=== PATIENT | male | born 1985 | race Two or more races ===

== ENCOUNTER 2020-11-01 10:43 | Outpatient (REF) | payer OTHER, SELFPAY | END 2020-11-01 10:44 | disposition home or self-care (01) | LOC: HO.LAB 10:43 | PROVIDERS: Visit Provider Internal Medicine | DX: Z20.822 Contact with and (suspected) exposure to COVID-19 (principal) | CPT/HCPCS: 36415; C9803; U0003 ==

== ENCOUNTER 2020-12-14 12:00 | Outpatient (REF) | payer OTHER, SELFPAY ==
[2020-12-14 12:30] LABS: MANUAL DIFF FLAG NO
[2020-12-14 12:35] LABS: Basophils Percent Auto 0.5 % (0-2); Eosinophils Absolute Auto 0.2 X10*3/uL (0.0-0.4); Hematocrit 46.9 % (42-52); Imm Gran Abs Auto 0.02 X10*3/uL (0.00-0.03); Imm Gran Pct Auto 0.2 % (0.0-0.4); Lymphocytes Absolute Auto 2.3 X10*3/uL (1.2-4.9); Lymphocytes Percent Auto 29.2 % (20-40); Mean Corpuscular HGB Conc 34.1 g/dl (31.0-36.0); Mean Corpuscular Hemoglobin 29.7 pg (27.0-33.0); Mean Platelet Volume 12.7 fL (9.4-12.4); Monocytes Absolute Auto 0.5 X10*3/uL (0.1-1.2); Monocytes Percent Auto 6.5 % (2-11); Neutrophils Absolute Auto 4.9 X10*3/uL (2.0-8.3); Neutrophils Percent Auto 61.6 % (45-73); Platelet Count 219 X10*3/uL (160-400); Red Blood Count 5.39 X10*6/uL (4.60-5.80); Red Cell Distribution Width 13.2 % (11.0-16.0)
[2020-12-14 13:10] LABS: Alanine Aminotransferase 50 U/L (0-40); Albumin Level 4.4 g/dL (3.5-5.0); Alkaline Phosphatase 79 U/L (39-117); Anion Gap 10 (12-20); Aspartate Amino Transferase 26 U/L (5-37); Bilirubin Total 0.5 mg/dL (0.0-1.0); Blood Urea Nitrogen 8 mg/dL (9-16); Calcium 9.4 mg/dL (8.4-10.2); Carbon Dioxide 31 mmol/L (22-29); Chloride 105 mmol/L (96-108); Cholesterol 170 mg/dL; Estimated Glomerular Filt Rate > 60; Glucose Random 90 mg/dL (60-115); HDL Cholesterol 32 mg/dL; LDL Cholesterol Calculated 112 mg/dl; Potassium 4.4 mmol/L (3.3-5.1); Sodium 142 mmol/L (135-145); Total Protein 6.7 g/dL (6.5-8.0); Triglycerides 132 mg/dL
== END 2020-12-14 12:01 | disposition home or self-care (01) ==
LOC: HO.LAB 12:00
PROVIDERS: PCP Internal Medicine; Visit Provider Internal Medicine
DX: Z00.00 Encounter for general adult medical examination without abnormal findings (principal); E78.1 Pure hyperglyceridemia; F33.42 Major depressive disorder, recurrent, in full remission; R74.01 Elevation of levels of liver transaminase levels; F17.211 Nicotine dependence, cigarettes, in remission
CPT/HCPCS: 36415; 80053; 80061; 85025

== ENCOUNTER 2021-02-05 09:45 | Outpatient (REF) | payer OTHER, SELFPAY ==
[2021-02-05 10:24] LABS: COVID-19 Test Negative (Negative)
== END 2021-02-05 09:46 | disposition home or self-care (01) ==
LOC: HO.LAB 09:45
PROVIDERS: Visit Provider Internal Medicine
DX: Z20.822 Contact with and (suspected) exposure to COVID-19 (principal)
CPT/HCPCS: 36415; 87635; C9803

== ENCOUNTER 2021-06-25 10:54 | Outpatient (REF) | payer OTHER, SELFPAY | END 2021-06-25 10:55 | disposition home or self-care (01) | LOC: HO.LAB 10:54 | PROVIDERS: PCP Internal Medicine; Visit Provider Internal Medicine | DX: Z20.822 Contact with and (suspected) exposure to COVID-19 (principal) | CPT/HCPCS: C9803; U0003; U0005 ==

== ENCOUNTER 2021-12-13 15:25 | Outpatient (REF) | payer OTHER, SELFPAY ==
[2021-12-13 15:48] LABS: Hematocrit 47.6 % (42.0-52.0); Hemoglobin 16.1 g/dl (14.0-18.0); Mean Corpuscular HGB Conc 33.8 g/dl (31.0-36.0); Mean Corpuscular Hemoglobin 29.9 pg (27.0-33.0); Mean Corpuscular Volume 88.3 fL (80.0-98.0); Mean Platelet Volume 12.4 fL (9.4-12.4); Platelet Count 226 X10*3/uL (160-400); Red Blood Count 5.39 X10*6/uL (4.60-5.80)
[2021-12-13 15:53] LABS: WBC ABN SCTR FOR CBC 1
[2021-12-13 16:10] LABS: White Blood Count 8.5 X10*3/uL (4.8-10.8)
[2021-12-13 16:18] LABS: Atypical Lymph Absolute Manual 0.1 x10*3/uL; Atypical Lymphs Percent Manual 1 % (0-6); Basophils Abs Manual 0.1 X10*3/uL (0.0-0.2); Basophils Percent Manual 1 % (0-2); Lymphocytes Absolute Manual 1.9 X10*3/uL (1.2-4.9); Lymphocytes Percent Manual 22 % (20-40); Monocytes Absolute Manual 0.6 X10*3/uL (0.1-1.2); Monocytes Percent Manual 7 % (2-11); Neutrophils Percent Manual 69 % (45-73)
[2021-12-13 16:19] LABS: Band Neutrophils Percent 0 % (3-5); Large Platelet PRESENT; Neutrophils Absolute Manual 5.9 X10*3/uL (2.0-8.3); Platelet Estimate NORMAL (NORMAL); Platelet Morphology Comment NOTED; RBC Morphology NORMAL
[2021-12-13 16:20] LABS: Acanthocytes 1+ (0-2) /OIF
[2021-12-13 16:44] LABS: Alanine Aminotransferase 37 U/L (0-40); Albumin Level 4.5 g/dL (3.5-5.0); Alkaline Phosphatase 85 U/L (39-117); Anion Gap 9 (12-20); Aspartate Amino Transferase 22 U/L (5-37); Bilirubin Total 0.9 mg/dL (0.0-1.0); Blood Urea Nitrogen 9 mg/dL (9-16); Calcium 9.9 mg/dL (8.4-10.2); Carbon Dioxide 31 mmol/L (22-29); Chloride 104 mmol/L (96-108); Cholesterol 192 mg/dL; Estimated Glomerular Filt Rate > 60; Glucose Random 82 mg/dL (60-115); HDL Cholesterol 32 mg/dL; LDL Cholesterol Calculated 124 mg/dl; Potassium 4.3 mmol/L (3.3-5.1); Sodium 140 mmol/L (135-145); Total Protein 6.9 g/dL (6.5-8.0); Triglycerides 181 mg/dL
[2021-12-13 17:04] LABS: Thyroid Stimulating Hormone 1.18 uIU/mL (0.32-4.0)
== END 2021-12-13 15:26 | disposition home or self-care (01) ==
LOC: HO.LAB 15:25
PROVIDERS: PCP Internal Medicine; Visit Provider Internal Medicine
DX: Z00.00 Encounter for general adult medical examination without abnormal findings (principal); E78.2 Mixed hyperlipidemia; R74.01 Elevation of levels of liver transaminase levels; F17.291 Nicotine dependence, other tobacco product, in remission
CPT/HCPCS: 36415; 80053; 80061; 84443; 85007; 85025; 85027

== ENCOUNTER 2022-05-30 13:34 | Outpatient (REF) | payer OTHER, SELFPAY ==
[2022-06-02 02:02] LABS: TS Negative Control Passed; TS Panel A 0; TS Panel B 0; TS Positive Control Passed; TSpotTB Negative (Negative)
== END 2022-05-30 13:35 | disposition home or self-care (01) ==
LOC: HO.LAB 13:34
PROVIDERS: PCP Internal Medicine; Visit Provider Internal Medicine
DX: Z11.1 Encounter for screening for respiratory tuberculosis (principal)
CPT/HCPCS: 36415; 86481

== ENCOUNTER 2023-10-02 12:19 | Outpatient (REF) | payer MEDICAID, SELFPAY | END 2023-10-02 12:20 | disposition home or self-care (01) | LOC: HO.XRAY 12:19 | PROVIDERS: PCP Internal Medicine; Visit Provider Internal Medicine | DX: Z13.89 Encounter for screening for other disorder (principal) | CPT/HCPCS: 73560 ==

== ENCOUNTER 2023-10-30 10:45 | Outpatient (REF) | payer MEDICAID, SELFPAY ==
[2023-10-30 13:22] LABS: MANUAL DIFF FLAG NO
[2023-10-30 13:34] LABS: Basophils Percent Auto 0.4 % (0-2); Eosinophils Absolute Auto 0.1 X10*3/uL (0.0-0.4); Eosinophils Percent Auto 1.6 % (0-4); Hematocrit 49.2 % (42.0-52.0); Hemoglobin 16.9 g/dl (14.0-18.0); Imm Gran Abs Auto 0.02 X10*3/uL (0.00-0.03); Imm Gran Pct Auto 0.3 % (0.0-0.4); Lymphocytes Absolute Auto 2.1 X10*3/uL (1.2-4.9); Lymphocytes Percent Auto 28.1 % (20-40); Mean Corpuscular HGB Conc 34.3 g/dl (31.0-36.0); Mean Corpuscular Hemoglobin 29.6 pg (27.0-33.0); Mean Corpuscular Volume 86.3 fL (80.0-98.0); Mean Platelet Volume 13.3 fL (9.4-12.4); Monocytes Absolute Auto 0.4 X10*3/uL (0.1-1.2); Monocytes Percent Auto 5.7 % (2-11); Neutrophils Absolute Auto 4.7 x10*3/uL (2.0-8.3); Neutrophils Percent Auto 63.9 % (45-73); Platelet Count 211 X10*3/uL (160-400); Red Cell Distribution Width 13.1 % (11.0-16.0); White Blood Count 7.3 X10*3/uL (4.8-10.8)
[2023-10-30 14:01] LABS: Alanine Aminotransferase 38 U/L (0-40); Albumin Level 4.3 g/dL (3.5-5.0); Alkaline Phosphatase 79 U/L (39-117); Anion Gap 10 (12-20); Aspartate Amino Transferase 23 U/L (5-37); Bilirubin Total 0.5 mg/dL (0.0-1.0); Blood Urea Nitrogen 12 mg/dL (9-16); Calcium 9.4 mg/dL (8.4-10.2); Carbon Dioxide 29 mmol/L (22-29); Chloride 107 mmol/L (96-108); Cholesterol 157 mg/dL (<200); Estimated Glomerular Filt Rate > 60; Glucose Random 92 mg/dL (60-115); HDL Cholesterol 32 mg/dL (>40); LDL Cholesterol Calculated 106 mg/dL (<100); Potassium 3.9 mmol/L (3.3-5.1); Sodium 142 mmol/L (135-145); Triglycerides 96 mg/dL (<150)
[2023-10-30 14:36] LABS: D Dimer High Sensitivity < 150 NG/ML
== END 2023-10-30 10:46 | disposition home or self-care (01) ==
LOC: HO.10HDL 10:45
PROVIDERS: Visit Provider Internal Medicine
DX: E78.1 Pure hyperglyceridemia (principal); I10 Essential (primary) hypertension; M79.604 Pain in right leg; R74.01 Elevation of levels of liver transaminase levels; Z87.19 Personal history of other diseases of the digestive system
CPT/HCPCS: 36415; 80053; 80061; 85025; 85379

== ENCOUNTER 2024-04-20 07:36 | Emergency (ER) | payer MEDICAID, SELFPAY ==
--- NOTE | ~2024-04-20 | XR_ITS ---
EXAMINATION: XR KNEE, LEFT CLINICAL INFORMATION: Left knee pain COMPARISON: None available. TECHNIQUE: Four views of the left knee. FINDINGS: Mild medial knee joint narrowing. No fracture, dislocation or joint effusion. XR/XR knee LT 3V IMPRESSION: Mild medial knee joint narrowing. No acute bony pathology.
[2024-04-20 07:38] VITALS: BP 121/89; PULSE 82; RESP 16; TEMP 37; O2SAT 96; BMI 31.0
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
[2024-04-20] MEDS: Ketorolac Tromethamine 30 MG/ML VIAL IM (10:37)
[2024-04-20 10:45] VITALS: BP 121/89; PULSE 82; RESP 16; TEMP 37; O2SAT 96
--- NOTE | 2024-04-20 10:45 | PC.NURSE ---
medicated per MAR, left knee wrapped
== END 2024-04-20 10:45 | disposition home or self-care (01) ==
PROVIDERS: Emergency Provider Emergency Medicine; PCP Internal Medicine
DX: S89.92XA Unspecified injury of left lower leg, initial encounter (principal); X58.XXXA Exposure to other specified factors, initial encounter; Y93.9 Activity, unspecified; Y92.9 Unspecified place or not applicable; Y99.9 Unspecified external cause status; M25.562 Pain in left knee
CPT/HCPCS: 73562; 96372; 99283; 99284; J1885

== ENCOUNTER 2024-05-12 10:12 | Outpatient (REF) | payer OTHER, SELFPAY ==
--- NOTE | ~2024-05-12 | XR_ITS ---
EXAMINATION: X-ray right knee X-ray left knee CLINICAL INFORMATION: Pain COMPARISON: X-ray 04/20/2024 TECHNIQUE: Right knee patellar sunrise one view. Left knee patellar sunrise one view FINDINGS: Right knee: Mild lateral patellar tilt and lateral patellofemoral joint space narrowing. No acute findings. Left knee: Mild lateral patellar tilt and lateral patella with joint space narrowing. No acute findings. XR/XR knee LT 1V IMPRESSION: As above Study is assigned for dictation on May 31, 2024
--- NOTE | ~2024-05-12 | XR_ITS ---
EXAMINATION: X-ray right knee X-ray left knee CLINICAL INFORMATION: Pain COMPARISON: X-ray 04/20/2024 TECHNIQUE: Right knee patellar sunrise one view. Left knee patellar sunrise one view FINDINGS: Right knee: Mild lateral patellar tilt and lateral patellofemoral joint space narrowing. No acute findings. Left knee: Mild lateral patellar tilt and lateral patella with joint space narrowing. No acute findings. XR/XR knee RT 1V IMPRESSION: As above Study is assigned for dictation on May 31, 2024
== END 2024-05-12 10:13 | disposition home or self-care (01) ==
LOC: HO.HOSX 10:12
PROVIDERS: PCP Internal Medicine; Visit Provider Physician Assistant
DX: M25.561 Pain in right knee (principal); M25.562 Pain in left knee; G89.29 Other chronic pain
CPT/HCPCS: 73560; 99212

== ENCOUNTER 2024-05-12 10:12 | Outpatient (AMB) | payer MEDICAID, SELFPAY ==
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
[2024-05-12 10:36] VITALS: BMI 31.0
== END 2024-05-12 11:12 | disposition home or self-care (01) ==
PROVIDERS: PCP Internal Medicine; Visit Provider Physician Assistant
DX: M25.561 Pain in right knee (principal); M25.562 Pain in left knee; G89.29 Other chronic pain
CPT/HCPCS: 99213

== ENCOUNTER 2024-07-02 09:00 | Outpatient (RCR) | payer OTHER, SELFPAY ==
--- NOTE | 2024-06-08 14:52 | MHC.PT.EP ---
[facility] [place] Office [place] Office [place] Office [address] Eduardo Foley [address] [phone] F: [phone] F: [phone] F: [phone] F: [phone] Physical Therapy Plan of Care Date of Evaluation: 06/08/24 Date of Surgery: Diagnosis: Chronic bilateral knee patellofemoral pain (MD Dx) (RS) Assessment: Patient is a pleasant 39 y.o. male who is referred to PT by Ector Monzon PA-C of [facility] with Dx of Chronic bilateral knee patellofemoral pain. He presents with reduced strength and endurance in bilateral knees and hips, causing muscle imbalances creating more strain to medial knees/patella. He also shows antalgic gait and poor mechanics with bend/squat. Patient current functional limitations are bend/lift at work, driving, prolonged stair use (flights), prolonged standing and walking. Patient will benefit from skilled PT to address aforementioned impairments and functional limitations to meet established goals. Frequency and Duration: The patient will be seen 1-2x/week for 4 weeks Short Term Goals: 2 weeks Patient demonstrates consistency and independence with HEP to self manage symptoms. 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 Patient presents with increased bilateral quad strength 5/5 to be able to bend/squat repeatedly without sxs. Treatment Plan: Modalities to reduce pain, spasms and effusion. Manual therapy to restore motion and function. Therapeutic exercise to improve strength and flexibility. Neuromuscular re-education for posture and balance. Therapeutic activities to return to functional activities of daily living. Electronically signed by: Jake Dong, PT, DPT Please sign and return to therapist. Thank you for your referral.
--- NOTE | 2024-08-18 15:47 | MHC.PT.DC ---
[facility] [place] Office [place] Office [place] Office [address] Eduardo Foley [address] [facility] [phone] F: [phone] F: [phone] F: [phone] F: [phone] Physical Therapy Discharge Report Diagnosis: Chronic bilateral knee patellofemoral pain ( Dx) (RS) Date of Surgery: Date of Evaluation: 06/08/24 Date of Discharge: 08/18/24 Treatments to Date: 4 Cancellations to Date: 0 No Shows to Date: 1 Discharge Status: Patient Elected to Stop Visit Non-compliance Discharge Summary: Radha was last seen 07/02/24 and the assessment reads, Pt with some increased soreness today after upright bike, rosangela patellar and medial pain, use of ice after bike. Continues to do well with only muscle fatigue throughout all other exercises. She ceased attending PT on her own accord after this session and is therefore discharged from PT at this time. Electronically signed by: Jake Dong, PT, DPT Please sign and return to therapist. Thank you for your referral.
== END 2024-08-18 15:48 | disposition home or self-care (01) ==
LOC: HO.PT 09:00
PROVIDERS: PCP Internal Medicine; Visit Provider Physician Assistant
DX: M25.561 Pain in right knee (principal); M25.562 Pain in left knee; G89.29 Other chronic pain
CPT/HCPCS: 97110; 97140; 97161; 97530

== ENCOUNTER 2024-07-29 14:13 | Outpatient (REF) | payer OTHER, SELFPAY ==
[2024-07-29 15:14] LABS: D Dimer High Sensitivity < 150 NG/ML
== END 2024-07-29 14:14 | disposition home or self-care (01) ==
LOC: HO.LAB 14:13
PROVIDERS: PCP Internal Medicine; Visit Provider Internal Medicine
DX: M79.661 Pain in right lower leg (principal); M22.2X1 Patellofemoral disorders, right knee
CPT/HCPCS: 36415; 85379

== ENCOUNTER 2024-07-30 09:25 | Outpatient (REF) | payer OTHER, SELFPAY ==
--- NOTE | ~2024-07-30 | US_ITS ---
EXAMINATION: US TRIPLEX LOWER EXTREMITY, RIGHT CLINICAL INFORMATION: Pain and swelling in right calf. COMPARISON: None available. TECHNIQUE: Color-flow triplex imaging with spectral analysis and compression Doppler were performed on the right lower extremity. FINDINGS: Respiratory variation, normal compression and augmented flow are noted throughout the right lower extremity. The visualized common femoral vein, superficial femoral vein, profunda femoral vein, popliteal vein and midcalf peroneal and posterior tibial venous segments show no evidence of deep venous thrombosis. The left common femoral vein was imaged for comparison and demonstrates normal respiratory variation. US/US venous duplex LE RT IMPRESSION: No evidence of deep venous thrombosis involving the right lower extremity. Electronically signed by: Yoav Pittman MD 07/30/2024 10:49 AM EDT
== END 2024-07-30 09:26 | disposition home or self-care (01) ==
LOC: HO.US 09:25
PROVIDERS: PCP Internal Medicine; Visit Provider Internal Medicine
DX: M79.605 Pain in left leg (principal); R60.0 Localized edema
CPT/HCPCS: 93971

== ENCOUNTER 2024-09-02 12:40 | Outpatient (AMB) | payer OTHER, SELFPAY ==
--- NOTE | 2024-09-02 12:45 | A.OFFVIS_ITS ---
Intake Visit Reasons: OV- B/L knee pain, injection request Intake Note: Radha a 39 year old male who presents today for a follow up of bilateral knee pain. Patient reports that he was unable to complete PT due to increased pain. He was seen by his PCP who suggest injections if PT was not helping. He would like to discuss injections today. Allergies lactose [LACTOSE] Adverse Reaction (Unknown, Verified 09/02/24 12:49) DIARRHEA - LACTOSE INTOLERANCE LACTOSE INTOLERANCE Allergy (Unknown, Uncoded 09/02/24 12:49) DIARHEA Lactose Monohydrate Adverse Reaction (Unknown, Uncoded 09/02/24 12:49) diarrhea HPI HPI OV- B/L knee pain, injection request: Details: 39-year-old male returns to the office today for bilateral knee pain. He states he has tried working with physical therapy but due to the increased pain and limitations in daily activities he was unable to continue. He is questioning alternative treatment options today. 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 Systems Const All systems reviewed & are unremarkable except as noted in HPI and below Physical Exam Const General: cooperative, healthy appearing and no acute distress Orientation/consciousness: patient oriented x3 Neck Neck: Yes normal visual inspection and Yes no JVD Chest Chest palpation & inspection: normal inspection of the chest Resp Effort & Inspection: normal respiratory effort and able to speak in complete sentences Auscultation: clear to auscultation bilaterally, crackles (no), rales (no), rhonchi (no) and wheezes (no) Cardio Jugular venous distension: no JVD Rate: regular rate Rhythm: regular rhythm Heart sounds: S1 normal heart sound present, S2 normal heart sound present, Murmur heart sound present (no) and Rub heart sound present (no) Peripheral pulses: Peripheral pulses 2+ throughout GI Palpation (GI): Soft to palpation Skin General skin exam: no rashes or lesions noted Neuro General: patient oriented x3 Extrem Other: Bilateral knee exam: Skin intact, no erythema or joint effusion. Tenderness along the lateral retropatellar and tenderness along the patellar tendon. Full ROM with crepitus. Negative Rusty?s. No ligamentous laxity. NVI. General: Yes normal to inspection, Yes no pedal edema and Yes no calf tenderness Psych Appearance: grossly normal Mental Status: mental status grossly normal Speech and movement: Normal speech and movement present Office Procedures AMB Joint Injection/Aspiration Joint Injection/Aspiration Primary Site: right knee Secondary Site: left knee Prep: site was prepped using aseptic technique, ethochloride spray was applied and injection warnings given Injected: 80 mg of, DepoMedrol, with 8 mL of, 1% plain lidocaine and in the joint Approach Used: anteromedial Procedure: The patient tolerated the procedure well and there was some relief with the local anesthesia Coding 54855 - Glenohumeral/Tronchanteric Bursa/Intraarticular Procedure code (CPT) selection complete Assessment & Plan Assessment & Plan (1) Chronic patellofemoral pain of both knees: Code(s): M25.561 - Pain in right knee; M25.562 - Pain in left knee; G89.29 - Other chronic pain Category: Medical Plan: We discussed options today, which include steroid injection. The patient did consent to move forward with the injection, which was tolerated well.? I recommended rest, ice and elevation and OTC antiinflammatories prn for discomfort. If symptoms persist over the next 6-8 weeks, they will contact our office, otherwise, prn Coding Level of Care Code Est Pt Level 3 (50353) Complex EM visit Add On G2211 Diagnoses Chronic patellofemoral pain of both knees M25.561; M25.562; G89.29 CPT Codes Coding - Joint 7: 84614 - Glenohumeral/Tronchanteric Bursa/Intraarticular ([id number])
== END 2024-09-02 13:19 | disposition home or self-care (01) ==
PROVIDERS: PCP Internal Medicine; Visit Provider Physician Assistant
DX: M25.561 Pain in right knee (principal); M25.562 Pain in left knee; G89.29 Other chronic pain
CPT/HCPCS: 20610; 99213

== ENCOUNTER → 2024-09-02 12:40 | Outpatient (BNVA) | payer OTHER, SELFPAY | PROVIDERS: PCP Internal Medicine; Visit Provider Physician Assistant | DX: M25.561 Pain in right knee (principal); M25.562 Pain in left knee; G89.29 Other chronic pain | CPT/HCPCS: 20610; 99212; J1010; J2003 ==

== ENCOUNTER 2024-10-15 03:26 | Emergency (ER) | payer OTHER, SELFPAY ==
[2024-10-15 03:29] VITALS: BP 130/84; PULSE 67; RESP 18; TEMP 36.4; O2SAT 98; BMI 30.1
[2024-10-15 03:59] VITALS: BP 141/84; PULSE 64; RESP 16; TEMP 36.6; O2SAT 96
--- NOTE | 2024-10-15 05:19 | ED_ITS ---
HPI - Eye Problem General Chief complaint: Eye Problems Stated complaint: eye inj/pain Time Seen by Provider: 10/15/24 04:58 Source: patient Mode of arrival: ambulatory Limitations: no limitations History of Present Illness ED Provider: HPI Narrative: Irritation of the right eyelid started last night feels like there dirt in the eye woke up from sleep no foreign body Related Data Previous Rx's ?Medication ?Instructions ?Recorded acetaminophen 500 mg tablet 500 mg PO Q6H PRN fever or pain 04/20/24 (Tylenol Extra Strength) #14 tabs naproxen 500 mg tablet 500 mg PO BID PRN pain 10 days #20 04/20/24 tabs cephalexin 500 mg capsule 500 mg PO QID 7 days #28 caps 10/15/24 erythromycin 5 mg/gram (0.5 %) eye 1 appl ophthalmic (eye) TID #3.5 10/15/24 ointment grams Allergies Allergy/AdvReac Type Severity Reaction Status Date / Time lactose [LACTOSE] AdvReac Unknown DIARRHEA - Verified 10/15/24 03:30 LACTOSE INTOLERANCE LACTOSE INTOLERANCE Allergy Unknown DIARHEA Uncoded 09/02/24 12:49 Lactose Monohydrate AdvReac Unknown diarrhea Uncoded 09/02/24 12:49 Review of Systems Review of Systems: Yes all other systems are reviewed and are negative PMFSH Social History Social History Patient Tobacco Use Status: Never used Tobacco Smoked in Last 30 Days: No Use of substances other than those prescribed or required for medical reasons: No Advance Directives: No Advance Directives Information Provided: Yes Do you have a plan to hurt others: No Plan 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 Oriented X3. No acute distress. Eye: Slight inflamed edge of the right upper eyelid clinically blepharitis, sclera normal conjunctiva normal anterior chamber Neck: Normal inspection. Neck supple. CVS: Normal heart rate and rhythm. Pulses normal. Respiratory: No respiratory distress. Equal air entry bilateral, i Skin: Skin warm and dry. Normal skin color. Normal skin turgor. Medications Administered Discontinued Medications Generic Name Dose Route Start Last Admin Trade Name Freq PRN Reason Stop Dose Admin Cephalexin HCl 500 mg 10/15/24 05:24 10/15/24 05:34 Cephalexin 500 Mg Capsule PO 10/15/24 05:25 500 mg ONCE ONE Administration Erythromycin 1 cm 10/15/24 05:26 10/15/24 05:34 Erythromycin Base 0.5% Oph Oin 1 Gm Tube EYE-RIGHT 10/15/24 05:27 1 cm ONCE ONE Administration Medical Decision Making Medical Decision Making [facility] Narrative: Patient with blepharitis will prescribe erythromycin ointment Discharge Plan Discharge Clinical Impression: Blepharitis of eyelid of right eye Patient Disposition: Home, Self-Care Instructions: Blepharitis (ED) Additional Instructions: Apply erythromycin ointment 3 times a day at the at the edge of right upper eyelid Antibiotic as advised Prescriptions: New cephalexin 500 mg capsule 500 mg PO QID 7 Days Qty: 28 0RF erythromycin 5 mg/gram (0.5 %) ointment 1 appl ophthalmic (eye) TID Qty: 3.5 0RF No Action acetaminophen [Tylenol Extra Strength] 500 mg tablet 500 mg PO Q6H PRN (Reason: fever or pain) Qty: 14 0RF naproxen 500 mg tablet 500 mg PO BID PRN (Reason: pain) 10 Days Qty: 20 0RF Stand Alone Forms: Work/School Release Interventions: ED Discharge Assessment Last Done: 10/15/24 05:42 Discharge Date/Time: 10/15/24 05:43 Print Language: Bolivian
[2024-10-15] MEDS: Erythromycin Base 0.5% Oph Oin 1 GM TUBE 1 CM EYE-RIGHT (05:34)
[2024-10-15] MEDS: cephALEXin 500 MG CAPSULE PO (05:34)
[2024-10-15 05:37] VITALS: BP 136/92; PULSE 69; RESP 16; TEMP 36.4
[2024-10-15 05:42] VITALS: BP 136/92; PULSE 69; RESP 16; TEMP 36.4
== END 2024-10-15 05:43 | disposition home or self-care (01) ==
PROVIDERS: Emergency Provider Internal Medicine; PCP Internal Medicine
DX: H01.001 Unspecified blepharitis right upper eyelid (principal); H57.11 Ocular pain, right eye
CPT/HCPCS: 99283; 99284

== ENCOUNTER 2024-10-25 07:50 | Emergency (ER) | payer OTHER, SELFPAY ==
[2024-10-25 07:56] VITALS: BP 116/88; PULSE 75; RESP 16; TEMP 36.6; O2SAT 99; BMI 31.0
[2024-10-25 08:24] LABS: IDNOW Serial# 08D9AD1C; Strep A Nucleic Acid Negative (Negative)
[2024-10-25 09:45] LABS: Influenza A PCR NEGATIVE (Negative); Influenza B PCR NEGATIVE (Negative); Resp Syncy Virus RNA Qual PCR NEGATIVE (Negative); SARS COV2 PCR INHOUSE NEGATIVE (Negative)
--- NOTE | 2024-10-25 10:16 | ED_ITS ---
HPI - General Adult General Chief complaint: General Medical Stated complaint: r side throat pain Time Seen by Provider: 10/25/24 10:16 Source: patient, RN notes reviewed and old records reviewed Mode of arrival: ambulatory History of Present Illness ED Provider: Jessika De Dios PA-C HPI narrative: 39-year-old male with no significant past medical history presenting to the ED complaining of right-sided sore throat x 6 days with painful swallowing. States noted erythematous/white spot to area. Admits was recently on p.o. Keflex and ophthalmic erythromycin for blepharitis which was prescribed on 10/15. Denies f ever, chills, ear pain, drainage from ear, hearing loss, inability to swallow, sick contacts, travel. Denies history of herpes/concern of STI Related Data Previous Rx's ?Medication ?Instructions ?Recorded acetaminophen 500 mg tablet 500 mg PO Q6H PRN fever or pain 04/20/24 (Tylenol Extra Strength) #14 tabs naproxen 500 mg tablet 500 mg PO BID PRN pain 10 days #20 04/20/24 tabs cephalexin 500 mg capsule 500 mg PO QID 7 days #28 caps 10/15/24 erythromycin 5 mg/gram (0.5 %) eye 1 appl ophthalmic (eye) TID #3.5 10/15/24 ointment grams lidocaine HCl 2 % mucosal solution 5 ml mucous membrane BID PRN mouth 10/25/24 (Lidocaine Viscous) pain #100 mL Allergies Allergy/AdvReac Type Severity Reaction Status Date / Time lactose [LACTOSE] AdvReac Unknown DIARRHEA - Verified 10/25/24 07:59 LACTOSE INTOLERANCE LACTOSE INTOLERANCE Allergy Unknown DIARHEA Uncoded 09/02/24 12:49 Lactose Monohydrate AdvReac Unknown diarrhea Uncoded 09/02/24 12:49 Review of Systems Review of Systems: Yes all other systems are reviewed and are negative Constitutional: Constitutional: Reports as per [facility] Past Medical History Attestation statement: The following information was validated with the patient. 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 No surrounding erythema. Tonsils WNL, uvula midline, Head: Yes normal to inspection and Yes atraumatic Ears: hearing grossly normal bilaterally, external ears normal, TM's normal bilaterally and mastoids normal General nose exam: Normal external nose present Face and sinus: Yes normal facial exam Mouth: no drooling Throat: Yes tonsils normal, Yes uvula midline, No peritonsillar mass, No uvula laterally displaced and No uvular edema Eyes General: appearance normal, both eyes and all related structures EOM: EOMs intact bilaterally Neck Neck: Yes normal visual inspection and Yes no meningeal signs Resp Effort & Inspection: normal respiratory effort, no respiratory distress and no stridor Auscultation: clear to auscultation bilaterally Cardio Rate: regular rate Heart sounds: S1 normal heart sound present and S2 normal heart sound present Skin Rashes: no rashes Wounds: no wounds Neuro General: patient oriented x3, tone normal and no meningeal signs Cranial nerves: Yes CN's II-XII intact bilaterally Gait exam (Neuro): Normal gait present Extrem General: Yes normal to inspection Course Course Course Narrative: -COVID/flu/RSV and rapid strep negative Results discussed with patient including worrisome signs and symptoms and strict return precautions, and when to return to the emergency department. They verbalized understanding and feel safe for discharge at this time. Medical Decision Making Medical Decision Making [facility] Narrative: 39-year-old male with no significant past medical history presenting to the ED complaining of right-sided sore throat x 6 days with painful swallowing. On exam vital signs stable, NAD, nontoxic appearing, no appreciable lymphadenopathy. Small ulcer noted to right posterior throat. Tonsils WNL, uv vik midline, nontoxic appearing, no respiratory distress. No evidence of CASE AIDE or retropharyngeal abscess. Concern for viral illness vs canker sore vs ? Herpes. Lower suspicion for mononucleosis at this time. Plan: Viral testing, rapid strep, herpes viral culture > will hold on herpes treatment at this time until culture results Please refer to course for remaining clinical decision making, interpretation of labs/imaging results, and discussions with consultants and/or family members. Differential Diagnosis Differential Diagnoses: The differential diagnosis associated with the presentation includes As above Lab Data MDM Lab Attestation statement: I reviewed the patient's lab results. Labs: Lab Results 10/25/24 Range/Units 08:09 Influenza Type A (PCR) NEGATIVE (Negative) Influenza Type B (PCR) NEGATIVE (Negative) RSV RNA Qual (PCR) NEGATIVE (Negative) SARS-CoV-2 RNA (RT-PCR) NEGATIVE (Negative) S. pyogenes GrpA KAMLESH Negative (Negative) Independent Historian Clinical information obtained from an independent historian. History obtained from or confirmed by: Other External Record Review External record reviewed: Inpatient record, Office record, Outpatient record, Prior outpatient labs, Prior outpatient radiology, Primary care record and Outsi de ED record Tests considered The following testing was considered but not selected: As above Prescription Management I considered prescription management with: Pain Medication and Antibiotic Chronic Conditions Patient?s care impacted by: Other Discharge Plan Discharge Clinical Impression: Ulcer aphthous oral, Sore throat Patient Disposition: Home, Self-Care Instructions: Pharyngitis (ED), Canker Sores (ED) Additional Instructions: You tested negative for COVID, flu, RSV, and strep throat You have a canker sore/ulcer in the back of your throat. We did swab it for herpes, this result will be back in a couple of days, we will contact you with positive results only Please use oral viscous lidocaine as prescribed, swish and spit for pain Take Tylenol and ibuprofen Gargle with warm saltwater If symptoms persist or worsen, pain is unbearable, you are unable to eat or drink return to the ED Prescriptions: New lidocaine HCl [Lidocaine Viscous] 2 % solution 5 ml mucous membrane BID PRN (Reason: mouth pain) Qty: 100 0RF Rx Instructions: swish, gargle & spit No Action acetaminophen [Tylenol Extra Strength] 500 mg tablet 500 mg PO Q6H PRN (Reason: fever or pain) Qty: 14 0RF naproxen 500 mg tablet 500 mg PO BID PRN (Reason: pain) 10 Days Qty: 20 0RF cephalexin 500 mg capsule 500 mg PO QID 7 Days Qty: 28 0RF erythromycin 5 mg/gram (0.5 %) ointment 1 appl ophthalmic (eye) TID Qty: 3.5 0RF Referrals: Roxana Segal MD [Primary Care Provider] - 5 days Print Language: Pashto
[2024-10-25 10:33] VITALS: BP 116/88; PULSE 75; RESP 16; TEMP 36.6; O2SAT 99
== END 2024-10-25 10:33 | disposition home or self-care (01) ==
PROVIDERS: Physician Assistant; Emergency Provider Emergency Medicine; PCP Internal Medicine
DX: K12.0 Recurrent oral aphthae (principal); J02.9 Acute pharyngitis, unspecified; Z03.818 Encounter for observation for suspected exposure to other biological agents ruled out
CPT/HCPCS: 0241U; 36415; 87255; 87651; 99282; 99283

== ENCOUNTER 2025-04-28 10:39 | Outpatient (REF) | payer OTHER, SELFPAY ==
--- OUTSIDE RECORDS SUMMARY | 2025-04-28 11:15 | XMS_ITS | Data Portability ---
Author Organization [facility], [address] Address [address] [place] [address] Assessment No assessment recorded. Plan of Treatment Reminders Order Date Submit Date Provider Last Modified By Organization Details Last Modified Time Details Appointments None record ed. Lab None record ed. Referral None record ed. Procedures None record ed. Surgeries None record ed. Imaging None record ed. Medication Orders None record ed. Patient TargetsNo targets recorded. Patient InstructionsNo instructions recorded. Reason for Referral None Reported. Procedures Surgical History Date Name Laterality Status Provider Name and Address Organization Details Recorded Time OC-UDS Send Out Template NON DOT completed LISA CRENSHAW [facility] 06/10/2023 18:29:35 Imaging Results None recorded. Procedure Notes None recorded. Medical Equipment None Reported. Vitals None Recorded Social History None recorded. Functional Status None recorded. Mental Status None recorded. Family History Nothing Reported. Medical History No medical history recorded. Past Encounters Encounter ID Performer Location Encounter Start Date Encounter Closed Date Diagnosis/Indication Diagnosis SNOMED-CT Code Diagnosis ICD10 Code Diagnosis Note [id number] [facility] [facility] [address] [place] [address] 07/18/2021 15:46:37 07/18/2021 17:40:51 [id number] [facility] [facility] [address] [place] [address] 07/25/2020 10:34:38 07/25/2020 11:59:25 [id number] [place] [address] [address] [place] [address] 06/10/2023 17:51:05 06/10/2023 18:37:28 History and physical examination, occupation 296729598 Z02.1 Health Concerns Section Related Observation LastModified by Organization Brendan escamilla LastModified Time None Recorded Concern Status LastModified by Organization Details LastModified Time None Recorded Advance Directives Directive None Recorded Payers Insurance Date Sequence Insurance Name Policy Number Policy Escobedo Covered Member ID Escobedo Member ID Guarantor Name 06/10/2023 [employer] Radha Nathan
[2025-04-28 11:55] LABS: Alanine Aminotransferase 47 U/L (0-40); Albumin Level 4.5 g/dL (3.5-5.0); Alkaline Phosphatase 80 U/L (39-117); Anion Gap 11 (12-20); Aspartate Amino Transferase 27 U/L (5-37); Blood Urea Nitrogen 9 mg/dL (9-16); Calcium 8.9 mg/dL (8.4-10.2); Carbon Dioxide 29 mmol/L (22-29); Chloride 108 mmol/L (96-108); Estimated Glomerular Filt Rate > 60; Potassium 3.8 mmol/L (3.3-5.1); Sodium 144 mmol/L (135-145); Total Protein 6.6 g/dL (6.5-8.0)
[2025-04-29 14:33] LABS: Rubeola IgG (Measles) >300.00 AU/mL
[2025-05-01 10:19] LABS: Hepatitis B Viral DNA Qn - cp NOT DETECTED Log IU/mL (NOT DETECTED); Hepatitis B Viral DNA Qn-IU/mL NOT DETECTED (NOT DETECTED)
[2025-05-01 20:29] LABS: TS Negative Control Passed; TS Panel A 0; TS Panel B 0; TS Positive Control Passed; TSpotTB Negative (Negative)
== END 2025-04-28 10:40 | disposition home or self-care (01) ==
LOC: HO.LAB 10:39
PROVIDERS: Visit Provider Internal Medicine
DX: Z00.00 Encounter for general adult medical examination without abnormal findings (principal); Z11.1 Encounter for screening for respiratory tuberculosis; Z11.59 Encounter for screening for other viral diseases; Z13.31 Encounter for screening for depression; M54.50 Low back pain, unspecified; F17.201 Nicotine dependence, unspecified, in remission
CPT/HCPCS: 36415; 80053; 86481; 86735; 86762; 86765; 86787; 87517

== ENCOUNTER 2025-07-14 05:31 | Emergency (ER) | payer OTHER, SELFPAY ==
[2025-07-14 05:33] VITALS: BP 135/87; PULSE 73; RESP 18; TEMP 36.6; O2SAT 97; BMI 30.9
[2025-07-14 06:03] LABS: MANUAL DIFF FLAG NO
[2025-07-14 06:04] LABS: Hematocrit 44.3 % (42.0-52.0); Hemoglobin 15.8 g/dl (14.0-18.0); Imm Gran Abs Auto 0.02 X10*3/uL (0.00-0.03); Imm Gran Pct Auto 0.2 % (0.0-0.4); Lymphocytes Absolute Auto 2.7 X10*3/uL (1.2-4.9); Mean Corpuscular HGB Conc 35.7 g/dl (31.0-36.0); Mean Corpuscular Hemoglobin 30.0 pg (27.0-33.0); Mean Corpuscular Volume 84.2 fL (80.0-98.0); NRBC Abs Auto 0.000 X10*3/uL (0.0-0.012); NRBC Pct Auto 0.0 /100WBC (0.0-0.2); Platelet Count 216 X10*3/uL (160-400); Red Blood Count 5.26 X10*6/uL (4.60-5.80); White Blood Count 8.2 X10*3/uL (4.8-10.8)
--- NOTE | 2025-07-14 06:24 | ED_ITS ---
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 No history of IV drug use no injections or instrumentation to the back. Related Data Previous Rx's ?Medication ?Instructions ?Recorded acetaminophen 500 mg tablet 500 mg PO Q6H PRN fever or pain 04/20/24 (Tylenol Extra Strength) #14 tabs naproxen 500 mg tablet 500 mg PO BID PRN pain 10 da ys #20 04/20/24 tabs cephalexin 500 mg capsule 500 mg PO QID 7 days #28 cap s 10/15/24 erythromycin 5 mg/gram (0.5 %) eye 1 appl ophthalmic ( eye) TID #3.5 10/15/24 ointment grams lidocaine HCl 2 % mucosal solution 5 ml mucous membran e BID PRN mouth 10/25/24 (Lidocaine Viscous) pain #100 mL cyclobenzaprine 5 mg tablet 5 mg PO TID PRN muscle spa sm 3 07/14/25 days #10 tabs lidocaine 4 % topical patch 1 patch topical DAILY PRN pain 5 07/14/25 (Aspercreme (lidocaine)) days #10 ea naproxen 500 mg tablet 500 mg PO BID 5 days #10 tab s 07/14/25 Allergies Allergy/AdvReac Type Severity Reaction Status Date / Time lactose (LACTOSE) AdvReac Unknown DIARRHEA - Verified 07/14/25 05:37 LACTOSE INTOLERANCE LACTOSE INTOLERANCE Allergy Unknown DIARHEA Uncoded 07/14/25 05:37 Lactose Monohydrate AdvReac Unknown diarrhea Uncoded 07/14/25 05:37 Review of Systems 2 Constitutional: Constitutional: Reports as per [facility] Social History Social History Patient Tobacco Use Status: Never used Tobacco Advance Directives: No 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 ?Resp: ?No wheezing rales rhonchi no stridor moving air well ? Abd: ?Bowel sounds are present, no tenderness no rebound no rigidity ? ?MSK: FROM, strength 5/5 all extremities, tenderness along paraspinal muscles midthoracic spine without midline step-offs without rashes, good strength bilateral lower extremities and equivocal sensation ? Skin: Warm, dry, intact, ? ?Neuro: ?Alert and oriented x3, moving upper and lower extremities symmetrically, no obvious facial asymmetry noted, cranial nerves 2-12 intact Medical Decision Making Medical Decision Making [facility] Narrative: 6:36 AM 07/14/2025 (Dr. Domenico Pillai): No red flags for infectious etiology such as diskitis osteomyelitis, no neurologic deficits to suspect spinal cord compression, either do from malignancy or spinal epidural abscess, does not have any other symptoms to suspect renal colic who did not feel further imaging such as CT is indicated, see my discharge instructions Differential Diagnosis Differential Diagnoses: The differential diagnosis associated with the presentation includes (Diskitis, osteomyelitis, spinal epidural abscess, cauda equina, musculoskeletal pain) Admission/Observation Consideration of admission/observation: Escalation of care including admission/observation considered Lab Data [facility] Lab Attestation statement: I reviewed the patient's lab results. 07/14/25 05:59 07/14/25 05:59 Labs: Lab Results 07/14/25 Range/Units 05:59 WBC 8.2 (4.8-10.8) X10*3/uL RBC 5.26 (4.60-5.80) X10*6/uL Hgb 15.8 (14.0-18.0) g/dl Hct 44.3 (42.0-52.0) % MCV 84.2 (80.0-98.0) fL MCH 30.0 (27.0-33.0) pg MCHC 35.7 (31.0-36.0) g/dl RDW 13.1 (11.0-16.0) % Plt Count 216 (160-400) X10*3/uL MPV 12.6 H (9.4-12.4) fL Immature Gran % (Auto) 0.2 (0.0-0.4) % Neut % (Auto) 58.6 (45-73) % Lymph % (Auto) 32.7 (20-40) % [place] % (Auto) 5.9 (2-11) % Eos % (Auto) 2.2 (0-4) % Baso % (Auto) 0.4 (0-2) % Lymph # (Auto) 2.7 (1.2-4.9) X10*3/uL [place] # (Auto) 0.5 (0.1-1.2) X10*3/uL Eos # (Auto) 0.2 (0.0-0.4) X10*3/uL Baso # (Auto) 0.0 (0.0-0.2) X10*3/uL Abs Immat Gran (auto) 0.02 (0.00-0.03) X10*3/uL Absolute Neuts (auto) 4.8 (2.0-8.3) x10*3/uL Absolute Nucleated RBC 0.000 (0.0-0.012) X10*3/uL Nucleated RBC % (auto) 0.0 (0.0-0.2) /100WBC Sodium 142 (135-145) mmol/L Potassium 3.4 (3.3-5.1) mmol/L Chloride 108 (96-108) mmol/L Carbon Dioxide 26 (22-29) mmol/L Anion Gap 11 L (12-20) BUN 10 (9-16) mg/dL Creatinine 0.75 (0.5-1.4) mg/dL Estim Creat Clear Calc 151.7 Estimated GFR > 60 Random Glucose 125 H (60-115) mg/dL Calcium 8.8 (8.4-10.2) mg/dL Total Bilirubin 0.2 (0.0-1.0) mg/dL Direct Bilirubin < 0.2 (0.0-0.5) mg/dL AST 26 (5-37) U/L ALT 35 (0-40) U/L Alkaline Phosphatase 74 (39-117) U/L Total Protein 6.5 (6.5-8.0) g/dL Albumin 4.2 (3.5-5.0) g/dL Lipase 26 (8-78) U/L Tests considered The following testing was considered but not selected: CT abdomen and pelvis Prescription Management I considered prescription management with: Pain Medication Discharge Plan Discharge Clinical Impression: Thoracic back pain Patient Disposition: Home, Self-Care Additional Instructions: Gentle stretching, ice packs heat packs to the areas that hurt the most, Tylenol 975 mg every 6 hours around the clock, Naprosyn 500 mg twice daily for the next 3 days, lidocaine patches to the area, and Flexeril 5 mg every 6-8 hours for muscle spasm we will make you drowsy do not drive while taking this medication, work note provided Your workup in the ER has been reassuring Spiking fevers, numbness in your groin your legs any other concerns come back to the ER otherwise follow up with the PCP for re-evaluation additional pain control you may need physical therapy and additional testing outpatient basis Prescriptions: New lidocaine [Aspercreme (lidocaine)] 4 % adhesive patch,medicated 1 patch topical DAILY PRN (Reason: pain) 5 Days Qty: 10 0RF naproxen 500 mg tablet 500 mg PO BID 5 Days Qty: 10 0RF cyclobenzaprine 5 mg tablet 5 mg PO TID PRN (Reason: muscle spasm) 3 Days Qty: 10 0RF No Action acetaminophen [Tylenol Extra Strength] 500 mg tablet 500 mg PO Q6H PRN (Reason: fever or pain) Qty: 14 0RF naproxen 500 mg tablet 500 mg PO BID PRN (Reason: pain) 10 Days Qty: 20 0RF cephalexin 500 mg capsule 500 mg PO QID 7 Days Qty: 28 0RF erythromycin 5 mg/gram (0.5 %) ointment 1 appl ophthalmic (eye) TID Qty: 3.5 0RF lidocaine HCl [Lidocaine Viscous] 2 % solution 5 ml mucous membrane BID PRN (Reason: mouth pain) Qty: 100 0RF Rx Instructions: swish, gargle & spit Referrals: Roxana Segal MD [Primary Care Provider, Internal Medicine] - 1 week Clinical Impression: Thoracic back pain Stand Alone Forms: Work/School Release Print Language: Croatian
[2025-07-14 06:27] LABS: Alanine Aminotransferase 35 U/L (0-40); Albumin Level 4.2 g/dL (3.5-5.0); Alkaline Phosphatase 74 U/L (39-117); Anion Gap 11 (12-20); Aspartate Amino Transferase 26 U/L (5-37); Blood Urea Nitrogen 10 mg/dL (9-16); Calcium 8.8 mg/dL (8.4-10.2); Carbon Dioxide 26 mmol/L (22-29); Chloride 108 mmol/L (96-108); Creatinine Clr Calc Pharmacy 151.7; Estimated Glomerular Filt Rate > 60; Lipase 26 U/L (8-78); Potassium 3.4 mmol/L (3.3-5.1); Sodium 142 mmol/L (135-145); Total Protein 6.5 g/dL (6.5-8.0)
[2025-07-14] MEDS: Lidocaine 4 % Patch ADH..PATCH 1 PATCH TRANSDERMA (06:56)
[2025-07-14 06:59] VITALS: BP 135/87; PULSE 73; RESP 18; TEMP 36.6; O2SAT 97
== END 2025-07-14 06:59 | disposition home or self-care (01) ==
PROVIDERS: Emergency Medicine; Emergency Provider Emergency Medicine; PCP Internal Medicine
DX: M54.6 Pain in thoracic spine (principal); Z87.442 Personal history of urinary calculi; Z79.899 Other long term (current) drug therapy
CPT/HCPCS: 36415; 80048; 80076; 83690; 85025; 96372; 99284; J1885; J8540

== ENCOUNTER 2025-08-19 14:23 | Emergency (ER) | payer OTHER, SELFPAY ==
[2025-08-19 15:12] VITALS: BP 138/91; PULSE 76; RESP 15; TEMP 36.6; O2SAT 97; BMI 31.7
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
[2025-08-19 15:58] LABS: MANUAL DIFF FLAG NO
[2025-08-19 15:59] LABS: Hematocrit 47.7 % (42.0-52.0); Hemoglobin 16.1 g/dl (14.0-18.0); Imm Gran Abs Auto 0.03 X10*3/uL (0.00-0.03); Imm Gran Pct Auto 0.3 % (0.0-0.4); Lymphocytes Absolute Auto 2.2 X10*3/uL (1.2-4.9); Mean Corpuscular HGB Conc 33.8 g/dl (31.0-36.0); Mean Corpuscular Hemoglobin 29.1 pg (27.0-33.0); Mean Corpuscular Volume 86.1 fL (80.0-98.0); NRBC Abs Auto 0.000 X10*3/uL (0.0-0.012); NRBC Pct Auto 0.0 /100WBC (0.0-0.2); Platelet Count 225 X10*3/uL (160-400); Red Blood Count 5.54 X10*6/uL (4.60-5.80); White Blood Count 9.0 X10*3/uL (4.8-10.8)
[2025-08-19 16:12] LABS: Alanine Aminotransferase 36 U/L (0-40); Albumin Level 4.7 g/dL (3.5-5.0); Alkaline Phosphatase 86 U/L (39-117); Anion Gap 12 (12-20); Aspartate Amino Transferase 24 U/L (5-37); Blood Urea Nitrogen 8 mg/dL (9-16); Calcium 9.1 mg/dL (8.4-10.2); Carbon Dioxide 28 mmol/L (22-29); Chloride 106 mmol/L (96-108); Creatinine Clr Calc Pharmacy 153.6; Estimated Glomerular Filt Rate > 60; Lipase 18 U/L (8-78); Magnesium 2.1 mg/dL (1.6-2.6); Potassium 3.6 mmol/L (3.3-5.1); Sodium 142 mmol/L (135-145); Total Protein 7.1 g/dL (6.5-8.0)
[2025-08-19 16:35] LABS: Resp Syncy Virus RNA Qual PCR NEGATIVE (Negative); SARS COV2 PCR INHOUSE NEGATIVE (Negative)
--- OUTSIDE RECORDS SUMMARY | 2025-08-19 16:54 | XMS_ITS | Data Portability ---
Author Organization [place] [facility] [place] [address] Assessment No assessment recorded. Plan of Treatment [...] Out Template NON DOT completed LISA CRENSHAW [facility] 06/10/2023 18:29:35 Imaging Results None recorded. Procedure Notes None recorded. Medical Equipment None Reported. Vitals None Recorded Social History None recorded. Functional Status None recorded. Mental Status None recorded. Family History Nothing Reported. Medical History No medical history recorded. Past Encounters Encounter ID Performer Location Encounter Start Date Encounter Closed Date Diagnosis/Indication Diagnosis SNOMED-CT Code Diagnosis ICD10 Code Diagnosis IMO Codes Diagnosis [facility] [id number] [facility] [address] [facility] [address] [place] [address] 07/18/2021 15:46:37 07/18/2021 17:40:51 [id number] [facility] [facility] [address] [place] [address] 07/25/2020 10:34:38 07/25/2020 11:59:25 [id number] [place] [id number] [address] [place] [address] 06/10/2023 17:51:05 06/10/2023 18:37:28 History and physical examination, occupation 641424238 Z02.1 Health Concerns Section Related Observation LastModified by Organization Brendan escamilla LastModified Time None Recorded Concern Status LastModified by Organization Details LastModified Time None Recorded Advance Directives Directive None Recorded Payers Insurance Date Sequence Insurance Name Policy Number Policy Escobedo Covered Member ID Escobedo Member ID Guarantor Name 06/10/2023 [employer] Radha Nathan
[2025-08-19] MEDS: Lactated Ringers 1,000 ML 999 ML IV (17:08)
[2025-08-19 17:24] VITALS: BP 119/79; PULSE 56; RESP 13; O2SAT 98
[2025-08-19 18:31] VITALS: BP 115/83; PULSE 61; RESP 16; O2SAT 99
[2025-08-19 19:25] LABS: Appearance Urine Clear; Glucose Urine UA Negative (Negative); PH 6.5 (5.0-9.0); Specific Gravity - Urine 1.015 (1.005-1.025)
[2025-08-19 20:21] VITALS: BP 129/79; PULSE 59; RESP 16; TEMP 36.5; O2SAT 96
== END 2025-08-19 20:22 | disposition home or self-care (01) ==
PROVIDERS: Physician Assistant Medical; Emergency Provider Emergency Medicine; PCP Internal Medicine
DX: R11.2 Nausea with vomiting, unspecified (principal); R19.7 Diarrhea, unspecified; R42 Dizziness and giddiness; R25.2 Cramp and spasm; Z03.818 Encounter for observation for suspected exposure to other biological agents ruled out; Z79.899 Other long term (current) drug therapy
CPT/HCPCS: 36415; 80048; 80076; 81003; 83690; 83735; 85025; 87637; 96365; 96366; 96375; 99284; J0737; J1308; J1885; J2405; J7120